=== PATIENT | female | born 1965 | race African-American/Black ===

== ENCOUNTER 2016-09-14 13:38 | Emergency (ER) | payer MEDICAID ==
[~2016-09-14] VITALS: Ht 185.4 cm; Wt 68.0 kg
[2016-09-14] MEDS ORDERED: IBUPROFEN 600MG TABLET PO ONE (14:15)
[2016-09-14] MEDS ORDERED: HYDROCODONE/ACETAMINOPHEN 5/325MG TABLET PO ONE (14:15)
[2016-09-14 16:52] VITALS: BP 135/77
== END 2016-09-14 17:10 | disposition home or self-care (01) ==
LOC: ER 14:00
DX: H54.61 Unqualified visual loss, right eye, normal vision left eye (principal); H57.11 Ocular pain, right eye; I10 Essential (primary) hypertension; Z87.440 Personal history of urinary (tract) infections
CPT/HCPCS: 70450; 99284; Z7610